=== PATIENT | female | born 1960 | race Caucasian/White ===

== ENCOUNTER 2021-04-14 17:58 | Emergency (ER) | payer OTHER ==
[2021-04-14 20:51] LABS: HEMOGLOBIN 12.6 gm/dl (12.3-15.3); RED BLOOD COUNT 4.18 M/UL (4.00-5.10); WHITE BLOOD COUNT 4.1 K/UL (4.5-11.0)
[2021-04-14 21:18] LABS: BUN/CREATININE RATIO 18 (0-10)
== END 2021-04-14 22:35 | disposition home or self-care (01) ==
LOC: ER1 17:58
PROVIDERS: Physician Assistant
DX: U07.1 COVID-19 (principal); Z88.8 Allergy status to other drugs, medicaments and biological substances
CPT/HCPCS: 80053; 82550; 82553; 83874; 83880; 84484; 85025; 85379; 85610; 85730; 99284

== ENCOUNTER → 2021-05-12 | Outpatient (CLI) | payer OTHER | LOC: KOH-I 14:12 | DX: R06.02 Shortness of breath (principal) | CPT/HCPCS: 71046 ==

== ENCOUNTER → 2021-06-03 | Outpatient (CLI) | payer OTHER ==
[2021-06-04 08:14] LABS: RHEUMATOID ARTHRITIS FACTOR <10.0 IU/mL (0.0-13.9)
== END ==
LOC: LAB 12:28
PROVIDERS: Nurse Practitioner Family
DX: I49.1 Atrial premature depolarization (principal); M25.50 Pain in unspecified joint; M79.10 Myalgia, unspecified site
CPT/HCPCS: 36415; 82550; 83520; 85652; 86140; 86200; 86431

== ENCOUNTER → 2021-12-25 | Outpatient (CLI) | payer OTHER | LOC: KOH-I 10:39 | DX: R10.10 Upper abdominal pain, unspecified (principal); K76.0 Fatty (change of) liver, not elsewhere classified | CPT/HCPCS: 76705 ==